=== PATIENT | female | born 1970 | race Caucasian/White ===

== ENCOUNTER 2018-11-17 16:11 | Emergency (ER) | payer BC, OTHER ==
[~2018-11-17] VITALS: Ht 167.6 cm; Wt 106.8 kg
[2018-11-17 16:38] VITALS: BP 169/76
[2018-11-17] MEDS ORDERED: traMADol 50MG tablet PO ONE (18:50)
[2018-11-17] MEDS ORDERED: ibuprofen tablet 400 MG TABLET PO ONE (18:50)
[2018-11-17] MEDS ORDERED: TRAM50TA2 PO (18:52)
== END 2018-11-17 19:16 | disposition home or self-care (01) ==
LOC: ER 16:11
DX: S83.92XA Sprain of unspecified site of left knee, initial encounter (principal); Z88.6 Allergy status to analgesic agent; Z88.5 Allergy status to narcotic agent; Z79.899 Other long term (current) drug therapy; X58.XXXA Exposure to other specified factors, initial encounter; Y93.89 Activity, other specified; Y92.89 Other specified places as the place of occurrence of the external cause; Y99.8 Other external cause status
CPT/HCPCS: 99283

== ENCOUNTER 2021-02-26 13:22 | Emergency (ER) | payer OTHER, BC ==
[~2021-02-26] VITALS: Ht 167.6 cm; Wt 90.9 kg
[~2021-02-26 13:22] MED LIST: ONDA4TAB12 PO
[2021-02-26 14:08] VITALS: BP 137/88
== END 2021-02-26 15:49 | disposition home or self-care (01) ==
LOC: ER 13:23
DX: R19.7 Diarrhea, unspecified (principal); Z20.822 Contact with and (suspected) exposure to COVID-19; R11.2 Nausea with vomiting, unspecified; M79.7 Fibromyalgia; Z87.891 Personal history of nicotine dependence; Z88.8 Allergy status to other drugs, medicaments and biological substances; Z79.899 Other long term (current) drug therapy
CPT/HCPCS: 87635; 99283; C9803

== ENCOUNTER 2023-03-25 08:59 | Emergency (ER) | payer BC, OTHER ==
[~2023-03-25] VITALS: Ht 167.6 cm; Wt 122.7 kg
[2023-03-25 09:10] VITALS: TEMP 98.8
[2023-03-25 09:39] LABS: BASOPHILS # (AUTO) 0.1 X10'3 (0-0.2); BASOPHILS % (AUTO) 0.8 % (0-1); EOSINOPHILS # (AUTO) 0.1 X10'3 (0-0.9); EOSINOPHILS % (AUTO) 1.5 % (0-6); HEMATOCRIT 33.6 % (35.0-45.0); HEMOGLOBIN 11.4 g/dl (12.0-16.0); LYMPHOCYTES % (AUTO) 26.7 % (21-51); MEAN CORPUSCULAR HEMOGLOBIN 30.7 PG (27.0-31.0); MEAN CORPUSCULAR HGB CONC 33.7 g/dL (33.0-36.5); MEAN CORPUSCULAR VOLUME 91.1 FL (78-98); MEAN PLATELET VOLUME 7.2 FL (7.4-10.4); MONOCYTES # (AUTO) 0.4 X10'3 (0-0.9); NEUTROPHILS # (AUTO) 4.9 X10'3 (1.8-7.7); PLATELET COUNT 314 X10'3 (140-440); RED BLOOD COUNT 3.69 X10'6 (4.20-5.60); RED CELL DISTRIBUTION WIDTH 14.2 % (11.5-14.5); WHITE BLOOD COUNT 7.5 X10'3 (4.5-11.0)
[2023-03-25 10:23] LABS: ALANINE AMINOTRANSFERASE 35 U/L (12-78); ALBUMIN 3.6 G/DL (3.4-5.0); ALBUMIN/GLOBULIN RATIO 0.9 (1.1-1.5); ALKALINE PHOSPHATASE 105 IU/L (46-116); ASPARTATE AMINO TRANSFERASE 22 U/L (10-37); BILIRUBIN,TOTAL 0.2 MG/DL (0.1-1.0); CALCIUM 9.3 MG/DL (8.5-10.1); TOTAL CARBON DIOXIDE 28.3 MMOL/L (24-32); TOTAL PROTEIN 7.5 G/DL (6.4-8.2)
[2023-03-25 10:33] LABS: ANION GAP 7 (8-16); BLOOD UREA NITROGEN 11 MG/DL (7-18); BUN/CREATININE RATIO 15.1 (10.0-20.0); CHLORIDE 100 MMOL/L (99-107); CREATININE 0.73 MG/DL (0.40-0.90); GLUCOSE 131 MG/DL (70-104); POTASSIUM 3.8 MMOL/L (3.5-5.1); SODIUM 135 MMOL/L (135-145); eCRCL 84 ML/MIN; eGFR 84 ML/MIN
[2023-03-25 11:38] VITALS: BP 175/106; RESP 18; O2SAT 99
--- NOTE | 2023-03-25 11:42 | NUR ---
PT IS RESTING QUIETLY ON JUDIRBIGG, FAMILY AT BEDSIDE. PT IS A/O X3, RESP EVEN AND UNLABORED, SKIN P/W/D, H/O LOW SODIUM, PT C/O 2 "EPISODES...MY BRAIN IS NOT TALKING TO MY BODY". SODIUM WAS 120 ON THURSDAY, TAKEN TO [facility] AND ADMITTED FOR ONE DAY. PT WAS ON HCTZ FOR 7 DAYS RECENTLY, STOPPED TAKING MED. STARTED ON LISINOPRIL THURSDAY. PT C/O "SHARP" PAIN AT BASE OF SKULL. FAMILY SAID PT IS SLOWLY GETTING WORSE, WAITING TO BE EVALUATED BY PROVIDER
[2023-03-25 12:17] VITALS: PULSE 65
== END 2023-03-25 12:18 | disposition home or self-care (01) ==
LOC: ER 08:59
DX: R41.82 Altered mental status, unspecified (principal); Z88.8 Allergy status to other drugs, medicaments and biological substances; Z79.899 Other long term (current) drug therapy; Z91.010 Allergy to peanuts
CPT/HCPCS: 36415; 80053; 85025; 99283